=== PATIENT | male | born 1990 | race Caucasian/White ===

== ENCOUNTER 2018-12-29 13:11 | Emergency (ER) | payer SELFPAY ==
[~2018-12-29] VITALS: Ht 170.2 cm; Wt 72.2 kg
[2018-12-29 13:15] VITALS: BP 135/96
--- NOTE | 2018-12-29 13:26 | NUR ---
28/M BROUGHT IN BY C/O LT KNEE PAIN ,REDNESS & SWOLLEN X2 WEEKS. PT STATES HE THINKS ITS FROM INSTALLING TILE AT WORK. CONSTANT THROBING PAIN AT 10/10 THAT RADIATES DOWN TO LT TOES. SMALL MASS PRESENT ON LT KNEE WITH SMALL AMOUNT OF THIN CLEAR DRAINAGE PRESENT, PT STATES IT STARTED DRAINING YESTERDAY. AAOX4 WITH EVEN AND UNSTEADY GAIT;PATIENT STATES PAIN OF 10/10 AT THIS TIME; VSS; PATIENT POSITIONED FOR COMFORT; LEFT LEG ELEVATED; BEDRAILS UP X1; BED DOWN. ER MD MADE AWARE OF PT STATUS.
[2018-12-29] MEDS ORDERED: KETOROLAC 30 MG/ML VIAL IVP ONE (14:35)
[2018-12-29] MEDS ORDERED: VANCOMYCIN 1,000 MG in DEXTROSE 5% 250 ML IV ONE (14:35)
[2018-12-29] MEDS ORDERED: NACL 0.9% 1,000 ML IV ONE (14:35)
[2018-12-29] MEDS ORDERED: VANCOMYCIN 1,000 MG VIAL ONE (14:55)
--- NOTE | 2018-12-29 17:06 | NUR ---
WOUND C/S L KNEE DONE BY DR JUSTICE.
--- NOTE | 2018-12-29 17:08 | NUR ---
Applied a non adherant dressing on PT's left knee secured on with a roll of gauze.
[2018-12-29 17:10] VITALS: BP 118/82
--- NOTE | 2018-12-29 17:10 | NUR ---
Patient discharged with v/s stable. Written and verbal after care instructions given and explained. Patient alert, oriented and verbalized understanding of instructions. Ambulatory with steady gait. All questions addressed prior to discharge. ID band removed. Patient advised to follow up with PMD. Rx of BACTRIM & KEFLEX given. Patient educated on indication of medication including possible reaction and side effects. Opportunity to ask questions provided and answered.
== END 2018-12-29 17:10 | disposition home or self-care (01) ==
LOC: MED 13:11
DX: L03.116 Cellulitis of left lower limb (principal); Z88.6 Allergy status to analgesic agent
CPT/HCPCS: 36415; 87040; 87070; 96365; 96375; 99283; J1885; J3370; J7030; 87186